=== PATIENT | male | born 1990 | race Two or more races ===

== ENCOUNTER 2024-08-20 16:19 | Emergency (ER) | payer OTHER ==
[~2024-08-20] VITALS: Ht 185.4 cm; Wt 104.3 kg
[2024-08-20] MEDS ORDERED: CIALIS5 MG PO (16:36)
[2024-08-20] MEDS ORDERED: LACTOBACILLUS ACIDOPHILUS 1 CAP CAP PO ONE ×2 (17:00→17:22)
[2024-08-20] MEDS ORDERED: FAMOTIDINE/PF 20 MG/2 ML VIAL IV ONE (17:00)
[2024-08-20] MEDS ORDERED: 0.9 % SODIUM CHLORIDE 1,000 ML IV ONE (17:00)
[2024-08-20] MEDS ORDERED: ONDANSETRON HCL 2 MG/ML VIAL IV ONE (17:00)
[2024-08-20] MEDS ORDERED: ONDANSETRON HCL 2 MG/ML VIAL ONE (17:22)
[2024-08-20] MEDS ORDERED: FAMOTIDINE/PF 20 MG/2 ML VIAL ONE (17:22)
[2024-08-20] MEDS ORDERED: 0.9 % SODIUM CHLORIDE 2,000 ML IV ONE (18:00)
[2024-08-20] MEDS ORDERED: LevETIRAcetam 500 MG/5 ML VIAL IV ONE ×2 (18:00)
[2024-08-20 18:17] LABS: HEMATOCRIT 46.5 % (39.0-48.0); HEMOGLOBIN 15.6 g/dL (13-16.00); MEAN CELL VOLUME 88.4 fL (80.0-100.00); MEAN CORPUSCULAR HEMOGLOBIN 29.7 pg (27.00-32.0); MEAN CORPUSCULAR HGB CONC 33.5 g/dl (32.0-36.0); PLATELET COUNT 293 K/uL (150-450); RED BLOOD COUNT 5.26 M/uL (4.00-6.00); RED CELL DISTRIBUTION WIDTH 12.8 % (11.5-14.5)
[2024-08-20 19:17] LABS: ALBUMIN 3.9 gm/dL (3.4-5.0); BILIRUBIN TOTAL 0.67 mg/dL (0.3-1.2); CALCIUM 8.9 mg/dL (8.5-10.1); CREATININE SERUM 1.08 mg/dL (0.70-1.30); GFR 77.81; GLOBULINA 3.5 G/DL (2.4-3.5); POTASSIUM 4.23 mEq/L (3.5-5.1); TOTAL PROTEIN 7.4 gm/dL (6.4-8.2)
[2024-08-20 20:02] LABS: PH,URINE 5.5 (5.0-8.0); URINE APPEARANCE Clear; URINE BILIRRUBIN Negative (NEGATIVE); URINE BLOOD Negative; URINE COLOR Yellow; URINE GLUCOSE Negative (NEGATIVE); URINE KETONE 15 (NEGATIVE); URINE LEUKOCYTE Negative; URINE NITRATE Negative; URINE PROTEIN Negative (NEGATIVE); URINE UROBILINOGEN 0.2 E.U./dl
[2024-08-20 20:07] LABS: URINE EPITHELIAL CELLS 3.3 uL (0.0-38.8); URINE WBC 12.3 uL (0.0-23.2)
[2024-08-20 20:15] LABS: COCAINE NEGATIVE (NEGATIVE); METHADONE NEGATIVE (NEGATIVE); OPIATES NEGATIVE (NEGATIVE); THC ( Cannabinoids) POSITIVE (NEGATIVE)
[2024-08-20 20:27] LABS: URINE RBC 0.8 uL (0.0-20.8)
[2024-08-20 21:44] LABS: HEMATOCRIT 42.8 % (39.0-48.0); MEAN CELL VOLUME 86.7 fL (80.0-100.00); MEAN CORPUSCULAR HEMOGLOBIN 30.5 pg (27.00-32.0); MEAN CORPUSCULAR HGB CONC 35.2 g/dl (32.0-36.0); PLATELET COUNT 277 K/uL (150-450); RED BLOOD COUNT 4.93 M/uL (4.00-6.00)
[2024-08-21] MEDS ORDERED: PEPCID40 MG PO (05:05)
[2024-08-21] MEDS ORDERED: INTESTINEX680 M2 PO (05:05)
[2024-08-21] MEDS ORDERED: PROTONIX40 MG PO (05:05)
[2024-08-21] MEDS ORDERED: CIPRO500 MG PO (05:05)
[2024-08-21] MEDS ORDERED: ZOFRAN8 MG PO (05:05)
[2024-08-21] MEDS ORDERED: ONDANSETRON 4 MG TAB.RAPDIS PO ONE (05:17)
== END 2024-08-21 05:22 ==
LOC: ER 16:22
PROVIDERS: General Practice
DX: A05.9 Bacterial foodborne intoxication, unspecified (principal); R55 Syncope and collapse; Z20.822 Contact with and (suspected) exposure to COVID-19